=== PATIENT | male | born 1950 | race American Indian/Alaskan Native ===

== ENCOUNTER 2017-04-02 12:38 | Emergency (ER) | payer MEDICARE, OTHER ==
[2017-04-02 13:20] LABS: Bilirubin,Urine NEG (Negative); Blood,Urine NEG (Negative); Ketones,Urine NEG (Negative); Leukocyte Esterase,Urine NEG (Negative); Nitrite,Urine NEG (Negative); Protein,Urine <15 mg/dL mg/dL (Negative)
[2017-04-02 14:15] LABS: Basophils % (Auto) 0.2 % (0.0-1.8); Mean Corpuscular HGB Conc 36 % (32-34); Mean Corpuscular Hemoglobin 33 pg (28-32); Mean Corpuscular Volume 90 fl (84-94); Platelet Count 212 K/mm3 (140-440); Red Blood Count 5.37 M/mm3 (3.65-5.03); White Blood Count 11.5 K/mm3 (4.5-11.0)
[2017-04-02 14:17] LABS: Hematocrit 48.1 % (35.5-45.6); Hemoglobin 17.5 gm/dl (11.8-15.2)
[2017-04-02 14:22] LABS: Anion Gap 16 mmol/L; BUN/Creatinine Ratio 15; Blood Urea Nitrogen 12 mg/dL (9-20); Calcium 9.3 mg/dL (8.4-10.2); Carbon Dioxide 29 mmol/L (22-30); Chloride 101.2 mmol/L (98-107); Glucose 118 mg/dL (75-100); Sodium 143 mmol/L (137-145)
[2017-04-02 14:31] LABS: Potassium 2.9 mmol/L (3.6-5.0)
[2017-04-02] MEDS ORDERED: K-DUR PO ONE (19:15)
--- NOTE | 2017-04-02 19:19 | Emergency Department Report ---
ED General Adult HPI - General Chief complaint: Nausea/Vomiting/Diarrhea Stated complaint: DIZZY, VOMITING Time Seen by Provider: 04/02/17 19:09 Source: patient, EMS Mode of arrival: Ambulatory Limitations: No Limitations - History of Present Illness Initial comments: Patient is a 66 years old male with no significant past medical history came today with 3 episodes of vomiting started today. Patient stated that he think it's most likely food poisoning because he drink probably an old milk. Patient stated that he is feeling much better now he is no longer nauseated. Denied any fever and no diarrhea. No abdominal pain. -: This morning Severity scale (0 -10): 0 - Related Data Allergies Allergy/AdvReac Type Severity Reaction Status Date / Time Penicillins Allergy Swelling Verified 04/02/17 12:57 ED Review of Systems ROS: Stated complaint: DIZZY, VOMITING Other details as noted in HPI Comment: All other systems reviewed and negative Constitutional: denies: chills, fever Respiratory: denies: cough, orthopnea, shortness of breath Cardiovascular: denies: chest pain, palpitations, dyspnea on exertion, orthopnea Gastrointestinal: nausea, vomiting. denies: abdominal pain, diarrhea, constipation, hematemesis, melena, hematochezia Genitourinary: denies: urgency, dysuria, frequency, hematuria Neurological: denies: headache, numbness, paresthesias ED Past Medical Hx - Past Medical History Previous Medical History?: No - Surgical History Past Surgical History?: No ED Physical Exam - General Limitations: No Limitations General appearance: alert, in no apparent distress - Head Head exam: Present: normocephalic - Eye Eye exam: Present: normal appearance - ENT ENT exam: Present: normal exam, normal orophraynx, mucous membranes moist - Neck Neck exam: Present: normal inspection. Absent: meningismus, full ROM - Respiratory Respiratory exam: Absent: normal lung sounds bilaterally, respiratory distress, wheezes, rales, rhonchi, stridor, accessory muscle use, decreased breath sounds , prolonged expiratory - Cardiovascular Cardiovascular Exam: Present: regular rate, normal rhythm, normal heart sounds - GI/Abdominal GI/Abdominal exam: Present: soft, normal bowel sounds. Absent: distended, tenderness, guarding, rebound, rigid, hyperactive bowel sounds, hypoactive bowel sounds, organomegaly, mass, bruit, pulsatile mass, hernia - Extremities Exam Extremities exam: Present: normal inspection, normal capillary refill. Absent: tenderness, pedal edema, joint swelling, calf tenderness - Neurological Exam Neurological exam: Present: alert, oriented X3, CN II-XII intact, normal gait - Skin Skin exam: Present: warm, intact, normal color ED Course Vital Signs 04/02/17 04/02/17 12:49 18:40 Temperature 99.8 F H 98.5 F Pulse Rate 96 H 84 Respiratory 16 26 H Rate Blood Pressure 158/84 Blood Pressure 142/79 [Left] O2 Sat by Pulse 98 97 Oximetry ED Medical Decision Making - Lab Data Result diagrams: 04/02/17 13:25 04/02/17 13:25 Critical care attestation.: If time is entered above; I have spent that time in minutes in the direct care of this critically ill patient, excluding procedure time. ED Disposition Clinical Impression: Vomiting, Hypokalemia Disposition: DC-01 TO HOME OR SELFCARE Is pt being admited?: No Condition: Stable Instructions: Acute Nausea and Vomiting (ED), Hypokalemia (ED) Referrals: PRIMARY CARE, [Primary Care Provider] - 3-5 Days
[2017-04-02 19:28] VITALS: BP 117/67
== END 2017-04-02 19:50 | disposition home or self-care (01) ==
LOC: ED 12:38
DX: E87.6 Hypokalemia (principal); R11.10 Vomiting, unspecified; Z88.0 Allergy status to penicillin
CPT/HCPCS: 36415; 80048; 81001; 83735; 85025; 99284